=== PATIENT | male | born 2000 | race Caucasian/White ===

== ENCOUNTER 2024-05-18 01:10 | Emergency (ER) | payer MEDICAID ==
[~2024-05-18] VITALS: Ht 175.3 cm; Wt 72.6 kg
[2024-05-18 01:26] VITALS: BP_SYST 134; PULSE 68; RESP 20; TEMP 98; O2SAT 98
[2024-05-18] MEDS: ONDANSETRON HCL 4 MG/2 ML VIAL IVP ONE (01:56)
[2024-05-18] MEDS: NACL 0.9% 1,000 ML IV ONE (01:56)
[2024-05-18 03:07] LABS: BARBITURATE, URINE NEGATIVE (NEG <=200); BENZODIAZEPINE, URINE NEGATIVE (NEG <=150); CANNABINOID, URINE NEGATIVE (NEG <=50); COCAINE, URINE NEGATIVE (NEG <=150); METHAMPHETAMINES SCREEN,URINE NEGATIVE (NEG <=500); OPIATE, URINE NEGATIVE (NEG <=100); PHENCYCLIDINE SCREEN,URINE NEGATIVE (NEG <=25); UR TRICYCLIC ANTIDEPRESSANTS NEGATIVE (NEG <=300); URINE AMPHETAMINE NEGATIVE (NEG <=500); URINE METHADONE NEGATIVE (NEG <=200); URINE OXYCODONE SCREEN NEGATIVE (NEG <=100)
[2024-05-18 03:29] VITALS: BP_SYST 119; PULSE 73; RESP 20; TEMP 98; O2SAT 96
[2024-05-18] MEDS ORDERED: ONDANSETRON 4 MG ODT TAB PO ONE (05:00)
== END 2024-05-18 03:27 | disposition home or self-care (01) ==
LOC: SED 01:10
DX: R40.4 Transient alteration of awareness (principal); F19.11 Other psychoactive substance abuse, in remission; R44.3 Hallucinations, unspecified; R41.0 Disorientation, unspecified
CPT/HCPCS: 99283; 96374; 96361; 80307; J2405; J7030